=== PATIENT | male | born 1945 | race Caucasian/White ===

== ENCOUNTER 2019-09-04 10:35 | Inpatient (IN) | payer OTHER ==
[~2019-09-04] VITALS: Ht 177.8 cm; Wt 96.3 kg
[~2019-09-04 10:35] MED LIST: ADULT LOW DOSE81 MG PO; ATENOLOL 50MG T50 M1 PO; CIPROFLOXACIN500 M1 PO; CO Q-10100 MG PO; FISH OIL 1,0001 EAC1 PO; HYTRIN 1 MG CAP1 MG GT; HYTRIN 1 MG CAP1 MG PO; HYTRIN 2MG CAPSU2 M1 PO; INDOMETHACIN 5050 MG PO; LASIX 20 MG TAB20 MG PO; NIASPAN 500 MG500 M1 PO; ONE DAILY FOR1 EACH PO; POTASSIUM GLUC500 MG PO; RED YEAST RICE600 MG PO; TRICOR145 MG PO; ZETIA10 MG PO
[2019-09-04 10:44] VITALS: BP 199/87
[2019-09-04 11:18] LABS: ABSOLUTE EOSINOPHILS 0.1 thou/uL (0.0-0.7); ABSOLUTE LYMPHOCYTES 1.3 thou/uL (0.8-5.3); ABSOLUTE MONOCYTES 0.4 thou/uL (0.0-1.2); ABSOLUTE NEUTROPHILS 3.6 thou/uL (1.6-8.1); BASOPHILS 0.9 %; EOSINOPHILS 2.3 %; HEMATOCRIT 48.3 % (42.0-52.0); HEMOGLOBIN 16.7 gm/dL (14.0-18.0); LYMPHOCYTES 23.2 %; MCH 32.8 pg (26.0-34.0); MCHC 34.5 g/dL (28.0-37.0); MONOCYTES 7.5 %; MPV 9.8 fl. (7.2-11.1); NUCLEATED RBCS 0 /100WBC; PLATELET COUNT* 162 thou/uL (150-400); POLYS 66.1 %; RBC 5.08 mil/uL (4.50-6.00); RDW-CV 14.2 % (10.5-14.5); WBC 5.5 thou/uL (4.0-11.0)
[2019-09-04 11:23] LABS: CALCIUM 8.2 mg/dL (8.5-10.1); POTASSIUM 4.9 mmol/L (3.5-5.1)
[2019-09-04 11:34] LABS: ALBUMIN 3.6 g/dL (3.4-5.0); TOTAL BILIRUBIN 0.7 mg/dL (<0.1-1.0); TOTAL PROTEIN 7.3 g/dL (6.4-8.2)
--- NOTE | 2019-09-04 12:26 | NUR ---
HAMLET NOTIFIED UPON PT RETURN FROM CT. PT CONNECTED TO BP AND PULSE OX MONITOR HE WAS PRIOR TO CT
[2019-09-04 14:29] VITALS: BP 147/78
[2019-09-04 14:30] VITALS: BP 217/108
--- NOTE | 2019-09-04 15:34 | EKG ---
[place] [address] ELECTROCARDIOGRAM REPORT Name: OLIVIA CHAHAL Mell Room: [address] ADM IN M.R.#: [id number] Admission: 09/04/19 Attend Phys: Mary Ramírez Discharge: Date of : 43 Report #: [id number] THIS REPORT FOR: //name// [facility] ED Test Date: 2019-09-04 Test Time: 11:21:51 Pat Name: OLIVIA CHAHAL Department: Room: [facility] Gender: M Compliance And Control Analyst: : 1945 Requested By: Jonathan Garcia Order Number: [id number] MD: John Conner Measurements Intervals [place] Rate: 61 P: 27 [place]: 208 QRS: 8 QRSD: 95 T: 69 QT: 401 QTc: 404 Interpretive Statements Sinus rhythm Abnormal R-wave progression, early transition ST elevation, consider early repolarization Compared to ECG 10/23/2011 07:53:40 Sinus bradycardia no longer present ST (T wave) deviation still present Electronically Signed On 09-04-2019 15:33:59 HUNTER GUIDE by John Conner [email or web address] <ELECTRONICALLY SIGNED> By: John Conner MD, FAC 09/04/19 1533 1121 [id number] John Conner MD, [facility] /EPI
[2019-09-04 17:57] LABS: CHOLESTEROL 207 mg/dL (<200); HDL CHOLESTEROL 47 mg/dL (>40); LDL CHOLESTEROL 137 mg/dL (<100); SERUM ASSESSMENT Clear; TC:HDL 4.4 Ratio (Not establshd); TRIGLYCERIDE 118 mg/dL (<150); VLDL 24 mg/dL (<40)
[2019-09-04 19:50] VITALS: BP 168/89
[2019-09-04 23:44] VITALS: BP 123/50
[2019-09-05 04:00] VITALS: BP 150/72
--- NOTE | 2019-09-05 07:24 | NUR ---
VSS. SEE MAR. SEE CHARTING. HOURLY ROUNDING FOR SAFETY.
[2019-09-05 08:00] VITALS: BP 142/75
[2019-09-05 12:01] VITALS: BP 138/65
--- NOTE | 2019-09-05 12:56 | NUR ---
Automatic Blocker: Met with patient today. Began stroke education plan. patient open to learning. Does not indicate any new symptoms today.
--- NOTE | 2019-09-05 13:06 | NUR ---
Pt is A&O. Resides at home alone. Independent. No DME. No hx of HH or SNF. Supportive sister. Goal is home at sd. No needs anticipated.
[2019-09-05 16:23] VITALS: BP 134/57
--- NOTE | 2019-09-05 16:45 | 2DMMODE ---
[place] [address] 2 D/M-MODE ECHOCARDIOGRAM Name: TIRSOOLIVIA Monte Room: [address] IN [facility]#: [id number] Admission: 09/04/19 Attend Phys: Lnea Torrez Discharge: Date of : 43 Date of Service: 09/05/19 1644 Report #: [id number] THIS REPORT FOR: //name// APPROVED REPORT Study performed: 09/05/2019 14:10:01 EXAM: Comprehensive 2D, Doppler, and color-flow Echocardiogram Patient Location: In-Patient Room #: [facility] Status: routine BSA: 2.16 HR: 63 bpm BP: 142/75 mmHg Rhythm: NSR Other Information Study Quality: Good Indications CVA/TIA Echo Enhancing Agent Indication: Rule out Shunt Agent(s) / Amount(s) Used: Agitated Saline 10 cc 2D Dimensions IVSd: 18.18 (7-11mm) LVOT Diam: 20.50 (18-24mm) LVDd: 38.20 mm PWd: 16.35 (7-11mm) Ascending Ao: 31.88 (22-36mm) LVDs: 23.66 (25-40mm) Aortic Root: 35.52 mm Volumes Left Atrial Volume (Systole) LA ESV Index: 19.10 mL/m2 Aortic Valve AoV Peak Glenroy.: 1.15 m/s AO Peak Gr.: 5.25 mmHg LVOT Max P.51 mmHg AO Mean Gr.: 2.90 mmHg LVOT Mean P.15 mmHg LVOT Max V: 1.28 m/s AO V2 VTI: 23.72 cm LVOT Mean V: 0.82 m/s SAAD (VTI): 3.88 cm2 LVOT V1 VTI: 27.87 [place] [address] 2 D/M-MODE ECHOCARDIOGRAM Name: OLIVIA CHAHAL Room: [address] IN ..#: [id number] Admission: 09/04/19 Attend Phys: Lena Torrez Discharge: Date of : 43 Date of Service: 09/05/19 1644 Report #: [id number] Mitral Valve E/A Ratio: 1.03 MV Decel. Time: 221.70 ms MV E Max Glenroy.: 0.60 m/s MV PHT: 64.29 ms MVA (PHT): 3.42 cm2 TDI E/Lateral E': 5.45 E/Medial E': 7.50 Medial E' Glenroy.: 0.08 m/s Lateral E' Glenroy.: 0.11 m/s Pulmonary Valve PV Peak Glenroy.: 0.89 m/s PV Peak Gr.: 3.14 mmHg Left Ventricle The left ventricle is normal size. There is normal LV segmental wall motion. Moderate concentric left ventricular hypertrophy. Left ventricular systolic function is normal. LVEF is 60-65%. Transmitral Doppler flow pattern suggests impaired LV relaxation. Right Ventricle The right ventricle is normal size. The right ventricular systolic function is normal. Atria The left atrium size is normal. The interatrial septum is intact with no evidence for an atrial septal defect. The right atrium size is normal. Aortic Valve Mild aortic valve sclerosis. No aortic regurgitation is present. There is no aortic valvular stenosis. Mitral Valve The mitral valve is normal in structure. There is no mitral valve regurgitation noted. No evidence of mitral valve stenosis. Tricuspid Valve The tricuspid valve is normal in structure. Unable to assess PA pressure. Trace tricuspid regurgitation. Pulmonic Valve The pulmonary valve is normal in structure. There is no pulmon[place] [address] 2 D/M-MODE ECHOCARDIOGRAM Name: OLIVIA CHAHAL Room: [address] IN [facility]#: [id number] Admission: 09/04/19 Attend Phys: Lena Torrez Discharge: Date of : 43 Date of Service: 09/05/19 1644 Report #: [id number] Great Vessels The aortic root is normal in size. IVC is normal in size and collapses >50% with inspiration. Pericardium There is no pericardial effusion. <Conclusion> The left ventricle is normal size. Moderate concentric left ventricular hypertrophy. Left ventricular systolic function is normal. LVEF is 60-65%. Transmitral Doppler flow pattern suggests impaired LV relaxation. The interatrial septum is intact with no evidence for an atrial septal defect. Trace tricuspid regurgitation. Mild aortic valve sclerosis. IVC is normal in size and collapses >50% with inspiration. <ELECTRONICALLY SIGNED> By: Crow Mack MD, FACC 09/05/19 1644 164 164 Crow Mack MD, FACC /INF
--- NOTE | 2019-09-05 17:48 | NUR ---
VSS, A&OX4, SB TO SR ON TELE, UP AD FRANSICO, WALKING IN THE ANDERS, HOURLY ROUNDING PERFORMED, POSSESSIONS AND CALL LIGHT WITHIN REACH.
[2019-09-05 19:40] VITALS: BP 149/74
[2019-09-06] VITALS: BP 144/79
[2019-09-06 02:10] LABS: GLYCOHEMOGLOBIN (HGB A1C) 6.1 % (4.8-5.6)
[2019-09-06 04:00] VITALS: BP 153/72
[2019-09-06 08:00] VITALS: BP 120/69
[2019-09-06 11:46] VITALS: BP 120/69
[2019-09-06] MEDS ORDERED: LIPITOR40 MG PO (11:59)
[2019-09-06] MEDS ORDERED: FOLIC ACID1 MG PO (12:00)
[2019-09-06] MEDS ORDERED: PLAVIX 75 MG TA75 MG PO (12:00)
[2019-09-06] MEDS ORDERED: VITAMIN B-121000 MC2 SUBQ (12:01)
--- NOTE | 2019-09-06 13:22 | NUR ---
I have reviewed the documentation by ROB RODRIGUEZ from 09/06/19 to 09/06/19 and I concur with it. WALDEMAR ADHIKARI
--- NOTE | 2019-09-11 12:03 | CON ---
[address] [address] CONSULTATION Name: TIRSOOLIVIA Monte Room: [address] IN M.R.#: [id number] Admission: 09/04/19 Attend Phys: Mary Ramírez Discharge: 09/06/19 Date of : 43 Report #: [id number] THIS REPORT FOR: //name// CC: Kelli Torrez DATE OF SERVICE: 09/05/2019 HISTORY OF PRESENT ILLNESS: This is a 73-year-old male patient who was evaluated by me for an episode he had on Wednesday. It looks like that the episode consisted of numbness on the left side as well as some weakness. It came spontaneously and resolved spontaneously in a few minutes. It was not associated with any headache. It looks like the weakness was severe on the left side because he had to sit down. He indicated that he had a similar episode about 4 years ago, but never sought any medical attention. No workup was done at that time. REVIEW OF SYSTEMS: Indicates that the patient is hypertensive and he takes antihypertensive for that. He has taken a baby aspirin for a long time. He does have some cardiac issues in the past. He has a history of high cholesterol. His intestine was removed some time ago. He does give a history of heart murmur in the past. He does have some inguinal hernia. This was his relevant 14-point review of systems. He does not complain of any specific eye, ENT, cardiac, respiratory, GI, , musculoskeletal, constitutional, dermatological, hematological, psychiatric, throat, or allergic symptom associated with present symptomatology. PAST MEDICAL HISTORY: Positive for similar episode about 4 years ago, but no workup was done. FAMILY HISTORY: Positive for stroke. SOCIAL HISTORY: He smoked a long time ago, but does not do it now. PHYSICAL EXAMINATION: NEUROLOGIC: The patient's examination indicates he is alert. He is responsive. He can follow simple and complex command. His speech, concentration, fund of knowledge, and memory is at his baseline. His cranial nerve examination 2 through 12 mostly looks unremarkable. I tried to look for a left hemianopsia, but I did not confirm that he may have some visual deficit, but they are not as prominent as expected from his occipital lobe stroke. His strength, sensation, reflexes, and tone is symmetrical. There is no cerebellar sign. There is no papilledema. There is no carotid bruit. GENERAL: He is reasonably well-developed individual. EXTREMITIES: His pulses are palpable. He does not have any significant edema, cyanosis, [place] [address] CONSULTATION Name: OLIVIA CHAHAL Room: [address]#: [id number] Admission: 09/04/19 Attend Phys: Mary Ramírez Discharge: 09/06/19 Date of : 43 Report #: [id number] CARDIAC: His cardiac examination does not show any atrial fibrillation. RESPIRATORY: He has no respiratory difficulty or rhonchi. VITAL SIGNS: Blood pressure is 142/75, respirations 16, pulse is 55, and temperature is 98.1. LABORATORY DATA: His white count is 5.5 and his cholesterol is 207 with LDL of 137. His MRIs and CT were reviewed and they are summarized as above. IMPRESSION: 1. 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 2. Dyslipidemia. 3. Stroke occurred in spite of the fact that this patient was on aspirin, so I think we will try a combination of aspirin and Plavix for at least 30 days and then decide which one to continue or to continue both. RECOMMENDATIONS: 1. We will suggest high intensity statin therapy. 2. Combination of aspirin and Plavix for the time being. 3. Quite a significant percentage of posterior cerebral strokes stand out to be cardioembolic. We will await an echo and this patient will need a 30-day event monitor as an outpatient. All of it was discussed with the patient and the patient wants to follow this plan. <ELECTRONICALLY SIGNED> By: Myron Wills MD 09/11/19 1203 0935 [id number] Wills MD /nt
== END 2019-09-06 13:21 | disposition home or self-care (01) | DRG 65 ==
LOC: M.ERS 10:35 → M.TBA-ER 13:20 → M.2W 13:20
PROVIDERS: Emergency Medicine Emergency Medical Services; ADMIT Internal Medicine
DX: I63.521 Cerebral infarction due to unspecified occlusion or stenosis of right anterior cerebral artery (principal); I16.9 Hypertensive crisis, unspecified; I35.8 Other nonrheumatic aortic valve disorders; K08.109 Complete loss of teeth, unspecified cause, unspecified class; I10 Essential (primary) hypertension; E78.00 Pure hypercholesterolemia, unspecified; E78.5 Hyperlipidemia, unspecified; F17.200 Nicotine dependence, unspecified, uncomplicated; I25.10 Atherosclerotic heart disease of native coronary artery without angina pectoris; R73.09 Other abnormal glucose; I07.1 Rheumatic tricuspid insufficiency; Z90.89 Acquired absence of other organs; Z79.82 Long term (current) use of aspirin; Z79.899 Other long term (current) drug therapy; Z88.5 Allergy status to narcotic agent; Z82.3 Family history of stroke

== ENCOUNTER 2019-09-07 14:32 | Inpatient (IN) | payer OTHER ==
[~2019-09-07] VITALS: Ht 180.3 cm; Wt 94.9 kg
[~2019-09-07 14:32] MED LIST changes: +FOLIC ACID1 MG PO; +LIPITOR40 MG PO; +PLAVIX 75 MG TA75 MG PO; +VITAMIN B-121000 MC2 SUBQ
[2019-09-07 15:03] LABS: ABSOLUTE LYMPHOCYTES 0.9 thou/uL (0.8-5.3); ABSOLUTE MONOCYTES 0.4 thou/uL (0.0-1.2); ABSOLUTE NEUTROPHILS 5.4 thou/uL (1.6-8.1); BASOPHILS 0.7 %; EOSINOPHILS 0.5 %; HEMATOCRIT 49.7 % (42.0-52.0); LYMPHOCYTES 12.7 %; MCH 32.5 pg (26.0-34.0); MCHC 34.3 g/dL (28.0-37.0); MCV 94.8 fL (80.0-100.0); MONOCYTES 6.5 %; MPV 9.4 fl. (7.2-11.1); NUCLEATED RBCS 0 /100WBC; PLATELET COUNT* 162 thou/uL (150-400); POLYS 79.6 %; RBC 5.24 mil/uL (4.50-6.00); RDW-CV 14.3 % (10.5-14.5); WBC 6.8 thou/uL (4.0-11.0)
[2019-09-07 15:11] LABS: PROTIME 10.3 Seconds (9.20-11.50)
[2019-09-07 15:12] LABS: CALCIUM 8.7 mg/dL (8.5-10.1); CREATININE 1.2 mg/dL (0.6-1.3); POTASSIUM 4.8 mmol/L (3.5-5.1)
[2019-09-07 15:16] LABS: ALBUMIN 3.9 g/dL (3.4-5.0); TOTAL BILIRUBIN 0.9 mg/dL (<0.1-1.0); TOTAL PROTEIN 7.6 g/dL (6.4-8.2)
[2019-09-07 18:45] VITALS: BP 165/129
[2019-09-07 20:00] VITALS: BP 166/72
[2019-09-07 23:45] VITALS: BP 157/71
[2019-09-08] VITALS (8 sets, daily range): BP systolic 142–194; BP diastolic 63–82
[2019-09-08 06:19] LABS: ALKALINE PHOSPHATASE 45 U/L (46-116); ANION GAP 6 mmol/L (7-16); BUN 8 mg/dL (7-18); CHLORIDE 109 mmol/L (98-107); CO2 29 mmol/L (21-32); CREATININE 0.9 mg/dL (0.6-1.3); GLUCOSE 95 mg/dL (70-99); SGOT 20 U/L (15-37); SODIUM 144 mmol/L (136-145)
[2019-09-08 06:20] LABS: ALBUMIN 3.1 g/dL (3.4-5.0); CHOLESTEROL 133 mg/dL (<200); HDL CHOLESTEROL 35 mg/dL (>40); LDL CHOLESTEROL 73 mg/dL (<100); SERUM ASSESSMENT CLEAR; TC:HDL 3.8 Ratio (Not establshd); TOTAL PROTEIN 6.2 g/dL (6.4-8.2); TRIGLYCERIDE 128 mg/dL (<150); VLDL 26 mg/dL (<40)
[2019-09-08 06:30] LABS: CALCIUM 7.6 mg/dL (8.5-10.1); SGPT 20 U/L (30-65)
--- NOTE | 2019-09-08 10:25 | EKG ---
[place] [address] ELECTROCARDIOGRAM REPORT Name: OLIVIA CHAHAL Room: [address] ADM IN M.R.#: [id number] Admission: 09/07/19 Attend Phys: Ishan Manriquez Discharge: Date of : 43 Report #: [id number] THIS REPORT FOR: //name// [facility] ED Test Date: 2019-09-07 Test Time: 14:54:41 Pat Name: OLIVIA CHAHAL Department: Room: [facility] Gender: M Databases Computer Consultant: : 1945 Requested By: Jonathan Garcia Order Number: [id number] MD: John Conner Measurements Intervals [place] Rate: 71 P: 42 [place]: 203 QRS: -6 QRSD: 90 T: 64 QT: 383 QTc: 417 Interpretive Statements Sinus rhythm Abnormal R-wave progression, early transition Minimal ST elevation, anterior leads suggesting early repolarization Compared to ECG 09/04/2019 11:21:51 No significant changes Electronically Signed On 09-08-2019 10:24:59 CONCRETE TECHNICIAN by John Conner [email or web address] <ELECTRONICALLY SIGNED> By: John Conner MD, FACC 09/08/19 1024 1454 1454 John Conner MD, [facility] /EPI
[2019-09-09] VITALS (7 sets, daily range): BP systolic 117–210; BP diastolic 51–95
[2019-09-09 02:07] LABS: GLYCOHEMOGLOBIN (HGB A1C) 5.9 % (4.8-5.6)
[2019-09-10 04:10] VITALS: BP 170/92
[2019-09-10 11:10] VITALS: BP 164/79
[2019-09-10 16:37] VITALS: BP 174/77
[2019-09-10 20:00] VITALS: BP 182/69
[2019-09-11] VITALS: BP 161/90
[2019-09-11 04:00] VITALS: BP 175/75
[2019-09-11 08:07] VITALS: BP 177/94
[2019-09-11 08:47] LABS: HEMATOCRIT 43.3 % (42.0-52.0); HEMOGLOBIN 14.9 gm/dL (14.0-18.0); MCH 32.3 pg (26.0-34.0); MCHC 34.5 g/dL (28.0-37.0); MCV 93.7 fL (80.0-100.0); MPV 8.8 fl. (7.2-11.1); RBC 4.62 mil/uL (4.50-6.00); RDW-CV 13.6 % (10.5-14.5); WBC 5.3 thou/uL (4.0-11.0)
[2019-09-11 08:55] LABS: CALCIUM 7.9 mg/dL (8.5-10.1); CREATININE 0.8 mg/dL (0.6-1.3); POTASSIUM 3.7 mmol/L (3.5-5.1)
[2019-09-11 11:21] VITALS: BP 177/94
[2019-09-11 12:00] VITALS: BP 151/78
--- NOTE | 2019-09-11 12:03 | CON ---
[address] [address] CONSULTATION Name: OLIVIA CHAHAL Room: [address] IN M.R.#: [id number] Admission: 09/07/19 Attend Phys: Ishan Manriquez Discharge: Date of : 43 Report #: [id number] THIS REPORT FOR: //name// CC: Ishan Tolbert DATE OF SERVICE: 09/07/2019 HISTORY OF PRESENT ILLNESS: This is a 73-year-old male patient who is known to me from the last admission. He was actually just here for a CVA because of the posterior cerebral artery stenosis or occlusion. His symptoms have much improved and he went home. The plan was to keep him on dual antiplatelet therapy, but unfortunately he never filled up his prescriptions. He did not fill up his prescription for statin either because he had a severe dyslipidemia. It would appear that his symptoms became worse. It is not clear when his symptoms became worse, either. He does not think he is much different, but he is definitely worse than before. The patient's sister has gone to see him and she asked him to call when he is out of the restroom, but he never called and she became concerned and asked the firepersons to go and check on him and he was on the floor, unable to get up, so I think he got worse sometime in the morning. He was brought to Emergency Room, and I examined him as a stroke protocol and his blood pressure is staying about 160 systolic, but he is definitely worse then he was the last time I saw him. REVIEW OF SYSTEMS: He does have a history of hyperlipidemia and a recent stroke just a few days ago. He had a similar episode 4 years ago, but he never sought any medical attention. PAST MEDICAL HISTORY: Positive for what looks like TIA and a stroke few days ago. FAMILY HISTORY: Positive for stroke. SOCIAL HISTORY: He used to smoke, but does not do it now. PHYSICAL EXAMINATION: Today indicates he is alert, he is responsive, he can still follow commands, but I think he has a neglect on the left side. He moves his left leg and he can move somewhat his left arm also, but the movement is small. He does not cooperate very well with the sensory examination. He does appear to have a facial palsy also on the left side. Cardiac examinations appear noncontributory. No respiratory difficulty was noticed. Blood pressure is running in acceptable range. The patient was discussed with Emergency Room physician multiple times, and I discussed with the hospitalist, who is going to admit the patient. Following thing was discussed. IMPRESSION: [place] [address] CONSULTATION Name: OLIVIA CHAHAL Room: [address] IN ..#: [id number] Admission: 09/07/19 Attend Phys: Ishan Manriquez Discharge: Date of : 43 Report #: [id number] 1. This patient is not a TPA candidate because he just had a stroke within 3 months and these aggravation of the stroke symptoms occurred way outside the window of 4-1/2 hour. 2. He is not an intervention candidate because no thrombus has been demonstrated in any large vessel. 3. He appeared to have become worse that appeared to be natural course of the stroke than anything else. I will suggest continuing dual platelet therapy with aspirin and Plavix. Problem is that he cannot swallow. If he cannot swallow, the Plavix has to be given by BAN or Joanna. Supervisor Chlorine Liquefaction is going to address that question. I talked to the sister that strokes are unpredictable and they can continue to become worse in the next few days and that is what I believe it has happened. There is nothing which we can do to alter the course of those strokes on CT scan. The strokes are more well defined and bigger, but that is because of natural course of the stroke than anything else. Dr. Romano will follow up with you from tomorrow, but I think this patient will need a prolonged rehabilitation, and we will consult rehab and put him on DVT prophylaxis. Time spent about 50 minutes and majority counseling and coordinating. <ELECTRONICALLY SIGNED> By: Myron Wills MD 09/11/19 120 22 Pstephanie Wills MD /nt
[2019-09-11 20:00] VITALS: BP 144/86
[2019-09-12 00:34] VITALS: BP 152/72
[2019-09-12 04:45] VITALS: BP 182/77
[2019-09-12 07:40] VITALS: BP 158/82
[2019-09-12 12:15] VITALS: BP 173/84
[2019-09-12 16:00] VITALS: BP 189/91
[2019-09-12] MEDS ORDERED: SODIUM CHLORIDE IVPB (16:40)
== END 2019-09-12 19:46 | DRG 65 ==
LOC: M.ERS 14:32 → M.TBA-ER 17:05 → M.2W 17:05 → M.3W 09-12 05:35
PROVIDERS: Emergency Medicine Emergency Medical Services; Internal Medicine; ADMIT Family Medicine
DX: I63.9 Cerebral infarction, unspecified (principal); G81.94 Hemiplegia, unspecified affecting left nondominant side; I10 Essential (primary) hypertension; I16.0 Hypertensive urgency; E78.5 Hyperlipidemia, unspecified; I25.10 Atherosclerotic heart disease of native coronary artery without angina pectoris; R73.03 Prediabetes; I35.8 Other nonrheumatic aortic valve disorders; Z66 Do not resuscitate; K08.40 Partial loss of teeth, unspecified cause; E78.00 Pure hypercholesterolemia, unspecified; Z79.82 Long term (current) use of aspirin; Z90.89 Acquired absence of other organs; Z79.899 Other long term (current) drug therapy; Z72.0 Tobacco use; Z88.5 Allergy status to narcotic agent; Z82.3 Family history of stroke

== ENCOUNTER 2019-09-12 17:52 | Inpatient (IN) | payer OTHER ==
[~2019-09-12] VITALS: Ht 177.8 cm; Wt 89.8 kg
[~2019-09-12 17:52] MED LIST changes: +SODIUM CHLORIDE IVPB
[2019-09-12 20:03] VITALS: BP 190/81
[2019-09-12 23:00] VITALS: BP 142/80
[2019-09-13 02:00] VITALS: BP 163/75
--- NOTE | 2019-09-13 02:43 | NUR ---
ADMITTED A 74 YEAR OLD MALE W/ RIGHT CVA & LEFT HEMIPARESIS @ 1936- -.RIGHT HAND DOMINANT.HOB UP.BED ALARM PUT ON @ 1939.HS MEDS GIVEN W/ VANILLA PUDDING,FOLLOWED W/ SIPS H20 ON GLASS.NO STRAW.NO BLOOD RETURN FROM SALINE LOCK RIGHT HAND @ 2300 BUT FLUSHED GOOD.BP 2300-142/80.NS 500 ML BOLUS IV GIVEN @ 2346.BP @ 0200-163/75.ON HOURLY ROUNDS.BEAUTICIAN APPRENTICE DOING ODD HOUR ROUNDS.
[2019-09-13 05:00] VITALS: BP 137/56
[2019-09-13 06:34] LABS: HEMATOCRIT 42.4 % (42.0-52.0); HEMOGLOBIN 14.7 gm/dL (14.0-18.0); MCH 32.7 pg (26.0-34.0); MCHC 34.7 g/dL (28.0-37.0); MCV 94.2 fL (80.0-100.0); MPV 10.3 fl. (7.2-11.1); RBC 4.5 mil/uL (4.50-6.00); RDW-CV 13.8 % (10.5-14.5); WBC 5.3 thou/uL (4.0-11.0)
--- NOTE | 2019-09-13 06:37 | NUR ---
SLEEPING SINCE 2044.CALLS TO USE URINAL X3.NURSE PUTS,HOLDS,REMOVES & EMPTIES URINAL.ALREADY INC URINE X2 WHEN CALLED 2X TO USE URINAL.TOOK ALL VANILLA PUDDING W/ HS MEDS.AT 0500-BP-137/56.NS 500 ML STARTED 2ND TIME @ 0514 PER SALINE LOCK RIGHT HAND.
[2019-09-13 06:42] LABS: CALCIUM 7.9 mg/dL (8.5-10.1); CREATININE 0.8 mg/dL (0.6-1.3); POTASSIUM 3.4 mmol/L (3.5-5.1)
[2019-09-13 07:00] VITALS: BP 168/74
--- NOTE | 2019-09-13 07:23 | NUR ---
BP CHECKED @ 0700-168/74.IV STILL INFUSING.
--- NOTE | 2019-09-13 10:08 | NUR ---
Nutrition: Pt admitted to rehab with Rt CVA. H/o HTN, stroke, UTI. Antiplatelet RX. Chopped diet, eating 100%. Albumin 3.1. Wt 209#. No nutrition interventions needed at this time. RD available. Will follow weekly. Mild risk.
[2019-09-13 12:00] VITALS: BP 159/59
--- NOTE | 2019-09-13 13:15 | NUR ---
MOOK and Dr Barakat met with pt to review team conference summary and plan for pt to review team conference summary and plan for pt to remain on rehab unit with team to reassess pt length of stay during team conference next Wednesday. Pt okay with plan. SW to continue to follow.
--- NOTE | 2019-09-13 17:23 | NUR ---
AM ASSESSMENT AND VITAL SIGNS COMPLETED DOCUMENTED. PT IS PLEASANT AND COOPERATIVE. PT'S LEFT SIDE IS WEAK AND HE IS MAX ASSIST OF TWO WITH TRANSFERS. SBP HAS BEEN MAINTAINED BETWEEN 160 AND 190. FALL PRECAUTIONS AND HOURLY ROUNDING CONTINUE.
[2019-09-13 20:27] VITALS: BP 180/78
--- NOTE | 2019-09-13 20:50 | NUR ---
RESTING QUIETLY IN BED WATCHING TV. DENIES DISCOMFORT. LEFT ARM ELEVATED ON A PILLOW. TOOK MEDICATIONS WHOLE WITH WATER. CALL LIGHT WITHIN REACH.
--- NOTE | 2019-09-14 04:56 | NUR ---
RESTED ON/OFF. ASSISTED WITH URINAL X 2. HOURLY ROUNDING IN PROGRESS.
--- NOTE | 2019-09-14 10:35 | NUR ---
SW met with pt to complete initial assessment, as SW had met pt yesterday with Dr Barakat to review team conference. Pt was alert, oriented, talkative. Pt lives at home alone and has a goal of dc home independently. Possibility for pt to dc home with sister support if needed. SW to continue to follow to assist with safe dc planning.
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
[2019-09-14 20:24] VITALS: BP 147/53
--- NOTE | 2019-09-14 22:58 | NUR ---
ON PERMISSIVE HTN PROTOCOL. BLOOD PRESSURE WAS 149/60, PULSE 54. ALSO HAS ORDERS FOR ATENOLOL 75 MG AND TERAZOSIN 2 MG AT HS. NO PARAMETERS ON THE ATENOLOL AND TERAZOSIN ORDERS. CALL PLACED TO DR. GOEL PER LINDA AT 2048. LINDA RESENT IT AUTOMATICALLY AT 2108. NO CALL RETURNED. THIS NURSE CALLED EXCHANGE AT [phone] AND ASKED FOR ANOTHER PAGE. IN THE MEAN TIME, DR. PIMENTEL CALLED THIS UNIT AT 2225 AND GAVE ORDERS TO HOLD THE ATENOLOL AND TERAZOSIN TONIGHT AND ADDED PARAMETERS TO HOLD IF SPB LESS THAN 160. SHE LATER EDITED THE [facility]AR FOR ADDITIONAL MEDICINES. DURING THE PHONE CALL SHE ORDERED THE FLUID BOLUS TO BE GIVEN AND CLARIFIED ITS PARAMETER OF GIVING IF SBP < 160. WHILE THIS NURSE WAS GETTING THE FLUID BOLUS PREPARED, DR. GOEL RETURNED CALL AT 2240 AND WAS INFORMED BY THIS NURSE OF THE CHANGES DR. PIMENTEL IMPLEMENTED.
--- NOTE | 2019-09-14 23:12 | NUR ---
[place] [address]. PATIENT RESTING IN BED SLEEPING AT SHIFT CHANGE. VOIDS PER URINAL WITH HELP. TURNS SELF. SALINE LOCK TO RT HAND, IV FLUID BOLUS INFUSING PER ORDER. SEE OTHER NOTE ABOUT BLOOD PRESSURES, PHYSICIAN CONTACTS AND CLARIFICATION OF ORDERS. VISUAL CUTS NOTED WHEN GIVING PATIENT PILLS AND FLUIDS. NO C/O PAIN. HOURLY ROUNDS CONTINUE. BED ALARM ON. CALL LITE IN REACH.
[2019-09-15 01:08] VITALS: BP 182/63
[2019-09-15 04:34] LABS: HEMATOCRIT 42.9 % (42.0-52.0); HEMOGLOBIN 14.9 gm/dL (14.0-18.0); MCHC 34.7 g/dL (28.0-37.0); MPV 9.4 fl. (7.2-11.1); RBC 4.51 mil/uL (4.50-6.00); RDW-CV 13.2 % (10.5-14.5); WBC 5.6 thou/uL (4.0-11.0)
[2019-09-15 04:52] LABS: CALCIUM 8.2 mg/dL (8.5-10.1); CREATININE 0.9 mg/dL (0.6-1.3); POTASSIUM 3.7 mmol/L (3.5-5.1)
--- NOTE | 2019-09-15 06:07 | NUR ---
SLEPT MUCH OF THE NIGHT. VOIDED PER URINAL ONCE, INCONTINENT OF URINE IN BRIEF LATER. SKIN CARE GIVEN, MOVES IN BED PER SELF. PULLED OUT IV JUST AFTER IV BOLUS COMPLETED. BLOOD PRESSURE AFTER BOLUS 182/63 PULSE 66. HOURLY ROUNDS CONTINUE. BED ALARM ON. CALL LITE IN REACH.
[2019-09-15 08:22] VITALS: BP 178/64
--- NOTE | 2019-09-15 15:45 | NUR ---
AM ASSESSMENT AND VITAL SIGNS COMPLETED DOCUMENTED. PT'S AM BLOOD PRESSURE WAS WITHIN THE DESIRED PARAMETERS. PT CONTINUES TO HAVE LEFT SIDED NEGLECT AND REQUIRES ASSISTANCE WITH EATING AND USING THE URINAL. PT TAKES HIS MEDICATION WHOLE, ONE AT A TIME IN PUDDING. PT IS WORKING WITH PT, OT AND ST. FALL PRECAUTIONS AND HOURLY ROUNDING CONTINUE.
[2019-09-15 20:32] VITALS: BP 167/65
--- NOTE | 2019-09-16 02:24 | NUR ---
ASSUMED CARE @ 1924-09/15-WED.CHAIR ALARM SOUNDED @ THIS TIME.FOUND WANTING TO STAND UP.PATIENT ON ROCKING CHAIR.ASSISTED TO BED W/ 2 PERSON W/ GB & WALKER. HOB UP.BED ALARM PUT ON @ 1929.LUE & LLE-STILL WEAK.HS MEDS GIVEN WHOLE ONE @ A TIME W/ VANILLA PUDDING @ 2039.RN FED REST OF PUDDING.LUE UP ON A PILLOW. ON HOURLY ROUNDS.CONTROL TOWER OPERATOR DOING ODD HOUR ROUNDS.TURNS SELF @ NIGHT.
--- NOTE | 2019-09-16 05:52 | NUR ---
SLEEPING SINCE 2200 & SLEPT GOOD ALL NIGHT.CALLS TO ASSIST W/URINAL X3.TOOK ALL VANILLA PUDDING WE/ HS MEDS HS SNACK.
[2019-09-16 08:00] VITALS: BP 140/72
[2019-09-16 13:00] VITALS: BP 143/59
--- NOTE | 2019-09-16 17:42 | NUR ---
ALERT AND OREINTED X4 BUT FORGETFUL AT TIMES. UP WITH 1-2 ASSIST, GAIT BELT AND WALKER FOR PIVOT TRANSFERS. HAS STRONG ALARM INVESTIGATOR AND GOOD STRENGTH IN LEFT HAND AND LEFT LEG BUT HAS POOR COORDINATION WITH MOVEMENTS. DR NOTIFIED OF AM BLOOD PRESSURE AND NO IV ACCESS. DR STATED SHE WANTED IV STARTED AND IV FLUID BOLUS GIVEN. NEW IV STARTED WITHOUT DIFFICULTY AND FLUID BOLUS INFUSED WITHOUT DIFFICULTY. MOM GIVEN FOR CONSTIPATION WITHUT RESULTS AT THIS TIME. TYLENOL GIVEN FOR HEADACH AND SEEMS HELPFUL. USES CALL LIGHT WITHIN REACH. FALL PRECAUTIONS IN PLACE, BED AND CHAIR ALARMS USED.
[2019-09-16 18:30] VITALS: BP 176/71
[2019-09-16 19:30] VITALS: BP 158/76
[2019-09-16 22:30] VITALS: BP 175/95
--- NOTE | 2019-09-17 01:22 | NUR ---
ASSUMED CARE @ -SAT.SITS IN W/C @ BEDSIDE VISITING W/ LADY & MALE FRIENDS.CHAIR ALARM ALREADY ON @ 1909.HS MEDS GIVEN WHOLE ONE @ TIME W/ APPLE SAUCE THIS TIME FOLLOWED W/ TOMATO JUICE.HS DOSES HYTRIN & ATENOLOL HELD.BP-158/76.2 PERSON TO TRANSFER.WEAK-LUE & LEFT LE.HOB UP & LUE UP ON A PILLOW @ 2049.URINAL W/IN REACH.BED ALARM PUT ON @ 2049.BP RE-CHECKED @ 2230- 175/95.SALINE LOCK HAS GOOD BLOOD RETURN @ -WEDNESDAY & FLUSHES GOOD. ON HOURLY ROUNDS.ANTHROPOLOGY FACULTY MEMBER DOING ODD HOUR ROUNDS.
--- NOTE | 2019-09-17 05:25 | NUR ---
SLEEPING SINCE 2144 & SLEPT GOOD ALL NIGHT.TOOK ALL APPLE SAUCE W/ HS MEDS & ALL TOMATO JUICE HS SNACKS.CALLED @ 0340.ALREADY INC.URINE X1.BOTTOM BED SHEET,GOWN & PADS CHANGED.USED URINAL W/ ASSIST X1.LAURA CARE DONE @ 0340.
[2019-09-17 08:03] VITALS: BP 178/117
[2019-09-17 08:30] VITALS: BP 164/73
--- NOTE | 2019-09-17 17:52 | NUR ---
ALERT AND ORIENTED WITH SOME FORGETFULNESS.UP WITH 1 ASSIST, GAIT BELT AND WALKER. NO C/O PAIN. HAS LEFT SIDED WEAKNESS AND DECREASE COORDINATION. CALL LIGHT WITHIN REACH. FALL PRECAUTIONS IN PLACE, BED AND CHAIR ALARM USED.
[2019-09-17 18:00] VITALS: BP 176/95
[2019-09-17 19:30] VITALS: BP 151/63
[2019-09-17 21:20] VITALS: BP 169/70
--- NOTE | 2019-09-18 00:54 | NUR ---
ASSUMED CARE @ 1909-09/17-SUN.SITS IN W/C IN WATCHING BALL GAME IN TV.CHAIR ALARM ALREADY ON @ 1909.TRANSFER W/ 2 PERSONS.WEAK-LUE & LEFT LE.HOB UP & LUE UP ON A PILLOW.BED ALARM PUT ON @ 1934.HS MED GIVEN W/ VANILLA pudding. HS BP MEDS X2 HELD.BP-151/63.DUL SUP GIVEN RECTALLY @ 2029.LAST BM-09/12.2 OR 3 SMALL STOOLS FELT WHEN SUP INSERTED.LATER- HAD MOD BM @ 2210 PER BSC.LAURA CARE DONE X2.SALINE LOCK HAS GOOD BLOOD RETURN & FLUSHES GOOD @ 9-09/18-WEDNESDAY. BP RE-CHECKED @ 2119-.ON HOURLY ROUNDS.CREW SUPERVISOR DOING ODD HOUR ROUNDS.
[2019-09-18 02:08] VITALS: BP 167/74
--- NOTE | 2019-09-18 05:25 | NUR ---
SLEPT LATE ABOUT 0200.WEARS PULL UPS.USED BSC X2.VOIDED X1 PER BSC.HAD BM X1 PER BSC.BP RE-CHECKED @ 0205-.TOOK ONLY 50% VANILLA PUDDING W/ HS MED.
[2019-09-18 08:10] VITALS: BP 166/69
[2019-09-18 16:00] VITALS: BP 131/98
--- NOTE | 2019-09-18 17:56 | NUR ---
SW spoke with pt sister Friday 09/15 and today about pt dc planning and pt sister informed that she is unable to accept pt home as pt sister lives in section 8 hud housing. Plus, pt sister said that even if her apts allowed her to have pt stay with her, pt sister is to have cataract surgery and would not be able to provide any physical or other needed care. Pt sister hopeful for [facility] to provide some assistance eventually but is also hopeful that pt could possibly dc to [facility] if needed at dc. SW to continue to follow to assist with safe dc planning.
--- NOTE | 2019-09-18 18:34 | NUR ---
ALERT AND ORIENTED WITH PERIODS OF FORGETFULNESS. UP WITH 1 ASSIST, GAIT BELT AND WALKER. HAS LEFT SIDED WEAKNESS FROM CVA. DENIES NEED FOR PAIN MEDICATIONS. CONTINENT OF BOWEL AND BLADDER. B/P THIS AFTERNOON 131/98 AND BOLUS IVF INFUSING AT THIS TIME WITHOUT DIFFICULTY. USES CALL LIGHT WITHIN REACH. FALL PRECAUTIONS IN PLACE.
[2019-09-18 19:10] VITALS: BP 181/81
--- NOTE | 2019-09-18 21:34 | NUR ---
ASSUMED CARE AT 1930. PATIENT RESTING IN BED. IV FLUID BOLUS COMPLETED AT 1930. PATIENT TURNS SELF. VOIDS PER URINAL. TAKES PILLS WHOLE WITH PUDDING. SALINE LOCK/IV RT AC FLUSHES WELL. NO C/O PAIN. HOURLY ROUNDS CONTINUE. BED ALARM ON. CALL LITE IN REACH.
[2019-09-19 02:00] VITALS: BP 152/77
[2019-09-19 05:21] LABS: HEMATOCRIT 45.7 % (42.0-52.0); HEMOGLOBIN 15.9 gm/dL (14.0-18.0); MCH 33.1 pg (26.0-34.0); MCHC 34.7 g/dL (28.0-37.0); MCV 95.3 fL (80.0-100.0); MPV 9.9 fl. (7.2-11.1); RBC 4.8 mil/uL (4.50-6.00); RDW-CV 13.3 % (10.5-14.5); WBC 5.9 thou/uL (4.0-11.0)
--- NOTE | 2019-09-19 05:31 | NUR ---
SLEPT MUCH OF THE NIGHT. IV FLUID BOLUS GIVEN AT 0200. IV TO RT AC PATENT, PATIENT NEEDS TO BE REMINDED TO KEEP ARM STRAIGHT DURING INFUSION. TURNS SELF. VOIDED PER URINAL. NO C/O PAIN. HOURLY ROUNDS CONTINUE. BED ALARM ON. CALL LITE IN REACH.
[2019-09-19 06:11] LABS: ALBUMIN 3.5 g/dL (3.4-5.0); CALCIUM 8.5 mg/dL (8.5-10.1); CREATININE 0.8 mg/dL (0.6-1.3); MAGNESIUM 1.7 mg/dL (1.8-2.4); POTASSIUM 3.6 mmol/L (3.5-5.1); TOTAL BILIRUBIN 1.2 mg/dL (<0.1-1.0); TOTAL PROTEIN 7.2 g/dL (6.4-8.2)
[2019-09-19 08:30] VITALS: BP 154/63
--- NOTE | 2019-09-19 16:04 | NUR ---
pt has participated with therapies and calls for assist as needs.pt transferrs with gaitbelt,walker and queing.pt has been continent of bladder.pt alert to self but forgetfull and has rt sided neglect. bed and chair alarms in use.
[2019-09-19 16:10] VITALS: BP 144/66
[2019-09-19 19:30] VITALS: BP 170/80
--- NOTE | 2019-09-19 20:20 | NUR ---
RESTING IN BED VISITING WITH RN PLASTIC SURGERY. DENIES DISCOMFORT. TOOK MEDICATIONS WHOLE ONE AT A TIME WITH VANILLA PUDDING. CALL LIGHT WITHIN REACH.
--- NOTE | 2019-09-20 05:42 | NUR ---
RESTED QUIETLY. ASSISTED WITH URINAL DURING THE NIGHT. HOURLY ROUNDING IN PROGRESS.
[2019-09-20 08:08] VITALS: BP 159/56
--- NOTE | 2019-09-20 16:55 | NUR ---
SW met with pt and pt sister to review team conference summary and discuss dc planning after Dr Barakat had discussed plan to reteam. Pt sister concerned for pt to dc home alone and is hopeful that if pt is not ready to dc home alone, pt could possible have more time for rehab at [facility]. SW to send referral to [facility] when needed if approved through insurance. SW to continue to follow to assist with safe dc planning.
--- NOTE | 2019-09-20 16:59 | NUR ---
pt up to chair with mod assist of 1,gaitbelt, walker and queing. pt has lt side neglect and is encouraged to look to lt for items on table and meal plates. pt denies pain.pt calls for assist with urinal and voids yellow urine.no bm today pt to start on miralax and did drink prune juice.pt alert to selfand is talkative.sl intact to rt. ac.
--- NOTE | 2019-09-20 17:30 | NUR ---
DR.DE GURPREET HILL HAS ADRESSED BLOOD PRESSURE MEDICATION.
[2019-09-20 19:46] VITALS: BP 160/79
--- NOTE | 2019-09-20 21:20 | NUR ---
ASSUMED CARE AT 1930. PATIENT RESTING IN BED. ABLE TO TURN SELF. VOIDS PER URINAL WITH NURSING ASSIST. BP 160/79. TAKES PILLS WHOLE WITH PUDDING. NO C/O PAIN. HOURLY ROUNDS CONTINUE. BED ALARM ON. CALL LITE IN REACH.
[2019-09-21 03:55] VITALS: BP 169/69
--- NOTE | 2019-09-21 06:02 | NUR ---
RESTED MOST OF THE NIGHT. REPOSITIONS SELF WITHOUT ASSIST. VOIDS PER URINAL, ABLE BRIDGE UP TO PULL PANTS DOWN AND UP TO USE URINAL. NO C/O PAIN. HOURLY ROUNDS CONTINUE. BED ALARM ON. CALL LITE IN REACH.
[2019-09-21 08:00] VITALS: BP 155/62
[2019-09-21 12:00] VITALS: BP 161/70
[2019-09-21 16:00] VITALS: BP 147/74
--- NOTE | 2019-09-21 17:27 | NUR ---
ASSUMMED CARE OF PT AT 0730, PT ALERT AND ORIENTED, FORGETFUL, TRANSFERS WITH MIN ASSIST, GB STAND AND PIVOTING, HAD LUNCH IN DININGROOM, TAKING FOOD AND FLUIDS WELL, HAD LARGE BM THIS SHIFT, VOIDS PER TOILET/URINAL, PT DENIES PAIN, BP 158/62 AT 0800, 500CC BOLUS GIVEN, AT NOON BP WITHIN PARAMETERS AND AT 1600 500CC BOLUS GIVEN FOR BP OF 147/74, SALINE LOCK TO RIGHT FOREARM PATENT, DR JAIME DISCUSSED ANTIHYPERTENSIVE MEDS AND BOLUS WITH DR LIVINGSTON, NO FURTHER ORDERS REGARDING BOLUS, PARTICIPATED IN ALL THERAPIES, HOURLY ROUNDING COMPLETED, ASSESSMENT COMPLETE, WILL CONTINUE TO MONITOR.
[2019-09-21 20:00] VITALS: BP 182/79
[2019-09-22 01:35] VITALS: BP 160/75
--- NOTE | 2019-09-22 05:13 | NUR ---
ASSUMED CARES AT 1920. ALERT AND ORIENTED BUT FORGETFUL. CVA WITH LEFT SIDE WEAKNESS. DENIED ANY NEED FOR PAIN MEDS. PT REQUESTED PILLS WHOLE IN PUDDING. NEEDS ASSIST WITH USE OF URINAL. DID HAVE URINARY ACCIDENT X 1. SLEPT MOST OF THE NIGHT OTHERWISE. CALL LIGHT IN REACH AND BED ALARM ON.
[2019-09-22 07:39] VITALS: BP 187/84
[2019-09-22 16:00] VITALS: BP 136/59
--- NOTE | 2019-09-22 16:24 | NUR ---
MOOK met with pt and pt sister to discuss plans for possible SNF at [place] at dc; pt insurance is in network and MOOK discussed with dc technical planner to fax referral. Plan to reteam on Wednesday to determine final dc plan.
--- NOTE | 2019-09-22 18:35 | NUR ---
ALERT AND ORIENTED WITH PERIODS OF FORGETFULNESS. UP WITH 1 ASSIST, GAIT BELT AND WALKER. DENIES NEED FOR PAIN MEDICATION. B/P 136/59 THIS EVENING AND IVF BOLUS STARTED WITHOUT DIFFICULTY AND CURRENTLY INFUSING. CALL LIGHT WITHIN REACH. FALL PRECAUTIONS IN PLACE WITH BED AND CHAIR ALARM ON.
[2019-09-22 20:04] VITALS: BP 137/71
[2019-09-22 22:00] VITALS: BP 176/75
[2019-09-23 02:00] VITALS: BP 167/74
--- NOTE | 2019-09-23 05:26 | NUR ---
ASSUMED CARES AT 1920. ALERT AND ORIENTED BUT FORGETFUL AT TIMES. SALINE LOCK CHANGED TO RIGHT HAND. DENIED ANY PAIN. TOOK PILLS WHOLE IN PUDDING. ASSISTED PT WITH URINAL. SLEPT WELL OTHERWISE. CALL LIGHT IN REACH AND BED ALARM ON.
[2019-09-23 08:00] VITALS: BP 158/85; BP 189/72
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
[2019-09-23 20:15] VITALS: BP 165/63
--- NOTE | 2019-09-23 20:30 | NUR ---
AWAKENED FOR REASSESSMENT AND MEDICATIONS PASS. DENIES DISCOMFORT. CALL LIGHT WITHIN REACH. TOOK MEDICATIONS WHOLE IN VANILLA PUDDING.
--- NOTE | 2019-09-24 05:19 | NUR ---
ASSISTED WITH URINAL AT ABOUT 0050. PATIENT STANDS AT SIDE OF THE BED TO VOID. TRANSFERRED FROM SITTING TO STANDING POSITION WITH SBA. HELD ONTO THE BEDRAIL WITH HIS RIGHT HAND. HELD HIS URINAL WITH HIS LEFT HAND AND DROPPED THE URINAL ON THE FLOOR AFTER VOIDING. RESTED QUIELTY THE REMAINDER OF THE NIGHT. TURNS SELF IN BED. HOURLY ROUNDING IN PROGRESS.
[2019-09-24 16:08] VITALS: BP 155/67
[2019-09-24 19:30] VITALS: BP 160/61
--- NOTE | 2019-09-24 19:50 | NUR ---
RESTING QUIETLY IN BED. CALL LIGHT WITHIN REACH. DENIES DISCOMFORT. TOOK MEDICATIONS WHOLE IN VANILLA PUDDING.
--- NOTE | 2019-09-25 05:32 | NUR ---
RESTED ON/OFF. DENIES DISCOMFORT. STANDS AT BEDSIDE WITH SBA TO VOID PER URINAL. HOURLY ROUNDING IN PROGRESS.
[2019-09-25 09:36] VITALS: BP 136/68
[2019-09-25 14:32] VITALS: BP 133/61
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
[2019-09-25 19:00] VITALS: BP 165/78
[2019-09-26 00:59] VITALS: BP 138/66
[2019-09-26 04:58] VITALS: BP 151/57
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
[2019-09-26 07:36] VITALS: BP 159/57
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
--- NOTE | 2019-09-26 14:26 | NUR ---
Nutrition: RN called with concern of pt food preferences. Pt busy with PT in gym at time of visit. RD left menu in pt's room for alternative ordering options. Chopped diet, CVA. Will f/u tomorrow and go over menu with pt, 09/27/19.
[2019-09-26 14:50] VITALS: BP 144/63
[2019-09-26 20:00] VITALS: BP 160/73
[2019-09-27 02:02] VITALS: BP 158/72
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
[2019-09-27 08:08] VITALS: BP 140/51
--- NOTE | 2019-09-27 14:10 | NUR ---
Nutrition: Per RN, pt not drinking much fluid, but appetite is getting better. Pt agreed to Tracy Ensure BID for added fluid intake. Wt: 204#. On Chopped diet. I also provided pt with menu and explanation of alternative choices and ordering. Pt did seem a little confused overall during our visit. Will follow weekly. Mild to low risk.
[2019-09-27 14:30] VITALS: BP 129/50
--- NOTE | 2019-09-27 16:22 | NUR ---
MOOK and Dr Barakat met with pt to review team conference summary and plan for pt to remain on rehab unit at least a few more days with possibility of dc on Wednesday to SNF pending insurance auth; if not approved for SNF, pt would remain on rehab unit and dc pending LTC placement. Insurance review today, SW to follow up with insurance regarding decision and dc planning.
--- NOTE | 2019-09-27 17:18 | NUR ---
ASSUMMED CARE OF PT AT 0730, PT ALERT, FORGETFUL, TRANSFERS WITH MIN ASSIST GB WALKER, NEEDS CUEING TO LOOK LEFT AND RIGHT, FIELD CUT AND DOES NOT SEE TO LEFT, NEED CUEING TO LIFT LEFT LEGG, TAKING FOOD WELL, ABLE TO SCOOP FOOD BETTER WITH PLATE GUARD, NEEDS ENCOURAGEMENT TO DRINK FLUIDS, NO BM THIS SHIFT, HAD LUNCH IN DININGROOM, DENIES PAIN, BP 140 THIS AM, SO NO BOLUS GIVEN, AT 1400 BP LOWER AT 129 SO 500CC BOLUS GIVEN, NO NEURO CHANGES, SL PATENT RIGHT HAND, PARTICIPATED IN ALL THERAPIES, HOURLY ROUNDING COMPLETED, ASSESSMENT COMPLETE, WILL CONTINUE TO MONITOR.
[2019-09-27 19:15] VITALS: BP 164/68
--- NOTE | 2019-09-27 19:50 | NUR ---
SITTING UP IN CHAIR WATCHING TV. DENIES DISCOMFORT. TRANSFERRED FROM CHAIR TO BED WITH SBA, GAITBELT, WALKER, CUEING. BEFORE SITTING DOWN IN BED USED URINAL STANDING UP. URINAL PLACED, HELD AND EMPTIED BY STAFF. TOOK MEDICATIONS WHOLE IN VANILLA PUDDING. CALL LIGHT WITHIN REACH.
--- NOTE | 2019-09-28 05:20 | NUR ---
UP X 3 DURING THE NIGHT TO SIDE OF THE BED TO VOID WITH ASSIST OF ONE. DOESN'T USE THE CALL LIGHT. SITS UP ON SIDE OF THE BED AND SETS THE BED ALARM OFF. HOURLY ROUNDING IN PROGRESS.
[2019-09-28 08:00] VITALS: BP 161/57
--- NOTE | 2019-09-28 17:53 | NUR ---
AM ASSESSMENT AND VITAL SIGNS COMPLETED DOCUMENTED. PT COMPLETED ALL THERAPY SESSIONS AND TOLERATED WELL. IV ACCESS AND SALINE BOLUSES HAVE BEEN DC'D. PT WAS INCONTINENT OF BM X 1 AND HE [address]RIBBLES URINE ON THE WAY TO THE BATHROOM. PT DENIES PAIN. FALL PRECAUTIONS AND HOURLY ROUNDING CONTINUE.
[2019-09-28 20:00] VITALS: BP 153/76
--- NOTE | 2019-09-28 20:20 | NUR ---
SITTING UP IN RECLINER WATCHING TV AND STARTING TO DOSE OFF TO SLEEP. DENIES DISCOMFORT. SITTING ON CHAIR ALARM. CALL LIGHT WITHIN REACH. TOOK MEDICATION WHOLE WITH VANILLA PUDDING. USED URINAL STANDING UP WITH MODERATE ASSISTANCE.
--- NOTE | 2019-09-29 05:21 | NUR ---
RESTED QUIETLY ALL NIGHT. TURNS SELF IN BED. HOURLY ROUNDING IN PROGRESS.
[2019-09-29 08:17] VITALS: BP 185/91
--- NOTE | 2019-09-29 17:10 | NUR ---
FAXED REFERRAL TO [facility] [phone]. WILL CALL TO CONFIRM THEY RECEIVED AND REVIEW FOR POSSIBLE PLACEMENT ON 10/02/19.
--- NOTE | 2019-09-29 18:23 | NUR ---
AM ASSESSMENT AND VITAL SIGNS COMPLETED DOCUMENTED. PT IS FORGETFUL AT TIMES AND GETS UP WITHOUT CALLING FOR ASSISTANCE. PT FEEDS HIMSELF ONCE HIS TRAY IS SET UP. NO C/O PAIN THIS SHIFT. FALL PRECAUTIONS AND HOURLY ROUNDING CONTINUE.
[2019-09-29 20:05] VITALS: BP 149/80
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
--- NOTE | 2019-09-30 05:58 | NUR ---
SLEPT MOST OF THE SHIFT. TURNS SELF. UP TO VOID WITH GAIT BELT, WALKER, AND NURSING HOLDING URINAL. NO C/O PAIN. HOURLY ROUNDS CONTINUE. BED ALARM ON. CALL LITE IN REACH.
[2019-09-30 08:21] VITALS: BP 134/72
[2019-09-30 14:00] VITALS: BP 144/74
--- NOTE | 2019-09-30 16:49 | NUR ---
ASSUMMED CARE OF PT AT 0730, PT ALERT, FORGETFUL, TRANSFERS WITH SBA, GB WALKER NEEDS CUEING TO LOOK TO LEFT HE TENDS TO MOVE WALKER TO RIGHT, NEEDS ENCOURAGEMENT TO EAT, PLATE GUARD HELPFUL AND PT ABLE TO FEED SELF BETTER WHEN USED, BP BELOW PARAMETERS THIS AM, PHYSICIAN AWARE, NO NEW ORDERS, DENIES PAIN, AMBULATED TO DININGROOM FOR LUNCH, NEEDS CUEING TO LIFT LEFT LEG UP WHEN STEPS, VOIDS PER TOILET, PARTICIPATION IN ALL THERAPIES, HOURLY ROUNDING COMPLETE, ASSESSMENT COMPLETE, WILL CONTINUE TO MONITOR.
[2019-09-30 20:00] VITALS: BP 180/86
[2019-09-30 20:30] VITALS: BP 153/77
--- NOTE | 2019-09-30 23:09 | NUR ---
ASSUMED CARE AT 1930. RESTING IN BED. UP TO VOID BY STANDING AT SIDE OF BED, GAIT BELT, WALKER. VOIDS PER URINAL. ALSO HAD BM PER TOILET. UP WITH GAIT BELT, WALKER, MUCH MUCH CUEING DUE TO VISUAL CUTS. DOES OWN CARES. TAKES PILLS WHOLE WITH VANILLA PUDDING. BLOOD PRESSURE CHECKED, WAS 180/86 AFTER REST AFTER SOME EXERTION. RECHECKED JUST PRIOR TO MEDS, WAS 153/77. SEE OCT. NO C/O PAIN. HOURLY ROUNDS CONTINUE. BED ALARM ON. CALL LITE IN REACH.
--- NOTE | 2019-10-01 06:17 | NUR ---
SLEPT MOST OF THE NIGHT. SET OFF BED ALARM ONCE NEEDING TO VOID. VOIDED PER URINAL WHILE STANDING. NO C/O PAIN. HOURLY ROUNDS CONTINUE. BED ALARM ON. CALL LITE IN REACH.
[2019-10-01 08:00] VITALS: BP 136/76
[2019-10-01 14:00] VITALS: BP 144/72
--- NOTE | 2019-10-01 16:43 | NUR ---
ASSUMMED CARE OF PT AT 0730, PT ALERT, FORGETFUL, TRANSFERS WITH SBA, GB WALKER, CUEING TO LOOK TO LEFT, AMBULATED TO BATHROOM TO VOID, BM X 1, PT TAKING FOOD AND FLUIDS WELL, PLATE GUARD DOES HELP PT SCOOP FOOD ONTO UTENSIL, PT DOES NEED CONSTANT CUEING TO LOOK TO LEFT, AMBULATED TO DININGROOM FOR LUNCH, DENIES PAIN, UP IN CHAIR MUCH OF SHIFT, HOURLY ROUNDING COMPLETED, ASSESSMENT COMPLETE, WILL CONTINUE TO MONITOR.
[2019-10-01 19:30] VITALS: BP 131/71
--- NOTE | 2019-10-01 21:46 | NUR ---
ASSUMED CARE AT 1930. PATIENT RESTING IN BED. TURNS SELF IN BED. TAKES PILLS WHOLE WITH VANILLA PUDDING. VOIDS PER URINAL. VISUAL CUTS NOTED, NEEDS CUEING WITH WALKER AND FINDING DRINKING WATER. NO C/O PAIN. HOURLY ROUNDS CONTINUE. BED ALARM ON. CALL LITE IN REACH.
--- NOTE | 2019-10-02 05:46 | NUR ---
SLEPT MOST OF THE NIGHT. TURNS SELF. NO C/O PAIN. VOIDED TWICE THIS SHIFT. HOURLY ROUNDS CONTINUE. BED ALARM ON. CALL LITE IN REACH.
[2019-10-02 08:02] VITALS: BP 145/77
--- NOTE | 2019-10-02 11:38 | NUR ---
VERIFIED WITH MAY/PHYSICAL THERAPY THAT THE PATIENT WILL CONTINUE RECEIVING THERAPY THIS WEEK AND TO PLAN DISCHARGE ON 10/06/19. CONFIRMED WITH MARGIE/INTAKE AT [facility] [phone] THAT THEY RECEIVED REFERRAL AND WILL COME TO ASSESS PATIENT ON WEDNESDAY OR Wednesday AND WILL SUBMIT INSURANCE AUTHORIZATION AT THAT TIME. SPOKE TO THE PATIENT ABOUT POSSIBLY GOING TO [facility] AND HE WAS AGREEABLE. CALLED AND LEFT VOICEMAIL MESSAGE FOR HIS SISTER (JONATHON) TO CALL CASE MANAGEMENT ABOUT DISCHARGE PLANS.
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
[2019-10-02 19:50] VITALS: BP 147/78
--- NOTE | 2019-10-02 19:50 | NUR ---
RESTING QUIETLY IN BED. DENIES DISCOMFORT. CALL LIGHT WITHIN REACH. TOOK MEDICATION WHOLE IN [facility].
--- NOTE | 2019-10-03 05:15 | NUR ---
ASSISTED WITH URINAL DURING THE NIGHT. PATIENT STANDS TO THE SIDE OF THE BED TO VOID. USED CALL LIGHT APPROPRIATMODE. HOURLY ROUNDING IN PROGRESS.
[2019-10-03 08:00] VITALS: BP 167/75
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
--- NOTE | 2019-10-03 19:40 | NUR ---
RESTING QUIETLY IN BED. SAYS THERE ISN'T ANYTHING ON TV HE WANTS TO WATCH. STANDS TO BEDSIDE WITH WALKER TO VOID PER URINAL. TOOK MEDICATIONS WHOLE WITH VANILLA PUDDING. DENIES DISCOMFORT. CALL LIGHT WITHIN REACH.
[2019-10-03 20:00] VITALS: BP 147/83
--- NOTE | 2019-10-04 05:00 | NUR ---
RESTED ON/OFF. ASSISTED WITH THE URINAL. HOURLY ROUNDING IN PROGRESS.
[2019-10-04 08:33] VITALS: BP 131/53
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
--- NOTE | 2019-10-04 18:24 | NUR ---
AM ASSESSMENT AND VITAL SIGNS COMPLETED DOCUMENTED. PT WILL BE TRANSFERRING TO A SNF ON WEDNESDAY. FALL PRECAUTIONS AND HOURLY ROUNDING CONTINUE.
[2019-10-04 19:15] VITALS: BP 114/61
--- NOTE | 2019-10-05 01:45 | NUR ---
ASSUMED CARE @ 190-10/04-WED.AWAKE IN BED.NECK BAND SETTER REMOVED PANTS & LEFT PULL UPS ON.HS DOSE HYTRIN HELD.BP LOW-114/61.OTHER HS MEDS GIVEN WHOLE ONE @ A TIME W/ DEANN GARCIA @ 2029.TURNS SELF @ NIGHT.ON HOURLY ROUNDS.NECK BAND SETTER DOING ODD HOUR ROUNDS.
--- NOTE | 2019-10-05 05:09 | NUR ---
SLEEPING SINCE 2200 & SLEPT GOOD ALL NIGHT.TOOK 90% VANILLA PUDDING W/ HS MEDS.ASSISTED TO STAND UP BY LEAD NET SOFTWARE DEVELOPER TO USE URINAL X1.LEAD NET SOFTWARE DEVELOPER HOLDS,REMOVES & EMPTIES URINAL.WEARS PULL UPS.
[2019-10-05 07:48] VITALS: BP 136/82
--- NOTE | 2019-10-05 10:44 | NUR ---
TALKED WITH MARGIE/KASSY AT [facility] [phone]. INSURANCE NEEDS RECENT PROGRESS AND THERAPY NOTES. FAXED UPDATED CLINICAL NOTES TO MARGIE. PLANNING DISHARGE FOR TOMORROW, 10/06/19.
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
--- NOTE | 2019-10-05 20:00 | NUR ---
RESTING QUIETLY IN BED. DENIES DISCOMFORT. CALL LIGHT AND URINAL WITHIN REACH.
[2019-10-05 20:05] VITALS: BP 150/80
--- NOTE | 2019-10-06 04:55 | NUR ---
RESTED QUIETLY. HOURLY ROUNDING IN PROGRESS.
[2019-10-06 07:00] VITALS: BP 151/64
--- NOTE | 2019-10-06 08:21 | NUR ---
CONFIRMED WITH MARGIE/KASSY AT [facility] THAT THEY RECEIVED INSURANCE AUTHORIZATION AND WILL CALL HER BACK TO ARRANGE TRANSPORTATION FOR PATIENT. WILL NOTIFY DAUGHTER WHEN TIME OF DISCHARGE IS DETERMINED SHE WANTS TO BE AT [facility] WHEN HE ARRIVES. WILL NOTIFY CASE MANAGEMENT AND NURSING UNIT. [phone]
[2019-10-06] MEDS ORDERED: DULCOLAX10 MG RECTAL (11:08)
[2019-10-06] MEDS ORDERED: COLACE100 MG PO (11:10)
[2019-10-06] MEDS ORDERED: MILK OF MA2400 MG/11 PO (11:15)
[2019-10-06] MEDS ORDERED: MIRALAX119 GM PO (11:16)
[2019-10-06] MEDS ORDERED: MYLANTA MAXIMU355 ML PO (11:18)
[2019-10-06] MEDS ORDERED: MIDODRINE HCL 55 M1 PO (11:21)
[2019-10-06] MEDS ORDERED: TYLENOL PO (11:24)
[2019-10-06 12:23] VITALS: BP 151/64
--- NOTE | 2019-10-06 14:08 | NUR ---
CONFIRMED WITH MARGIE/KASSY AT [facility] [phone] THAT A WHEELCHAIR VAN HAS BEEN ARRANGED FOR TRANSPORTATION TO EXPLOSIVE OPERATOR BOMB THE PATIENT BETWEEN 15:30-16:00 TODAY, 10/06/19. I SPOKE TO THE PATIENT TO NOTIFY HIM WHAT TIME HE WOULD BE PICKED UP AND CALLED JONATHON CAO (SISTER) [phone] ALSO TO LET HER KNOW. DISCHARGE SUMMARY AND DPOA FAXED TO [facility]. CHART COPY COMPLETED.
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
== END 2019-10-06 15:30 | DRG 56 ==
LOC: M.REH 17:52
PROVIDERS: Family Medicine; ADMIT Physical Medicine & Rehabilitation
DX: I69.354 Hemiplegia and hemiparesis following cerebral infarction affecting left non-dominant side (principal); I63.9 Cerebral infarction, unspecified; I10 Essential (primary) hypertension; E78.00 Pure hypercholesterolemia, unspecified; E78.5 Hyperlipidemia, unspecified; I25.10 Atherosclerotic heart disease of native coronary artery without angina pectoris; I35.8 Other nonrheumatic aortic valve disorders; R73.03 Prediabetes; H53.47 Heteronymous bilateral field defects; Z87.891 Personal history of nicotine dependence; Z88.5 Allergy status to narcotic agent; Z90.49 Acquired absence of other specified parts of digestive tract; Z95.5 Presence of coronary angioplasty implant and graft; Z71.6 Tobacco abuse counseling

== ENCOUNTER 2021-07-09 12:47 | Emergency (ER) | payer OTHER, MEDICAID ==
[~2021-07-09] VITALS: Ht 175.3 cm; Wt 90.7 kg
[~2021-07-09 12:47] MED LIST changes: +COLACE100 MG PO; +DULCOLAX10 MG RECTAL; +MIDODRINE HCL 55 M1 PO; +MILK OF MA2400 MG/11 PO; +MIRALAX119 GM PO; +MYLANTA MAXIMU355 ML PO; +TYLENOL PO
[2021-07-09] MEDS ORDERED: NITROSTAT0.4 M1 SUBLING (13:25)
[2021-07-09 14:31] LABS: ABSOLUTE BASOPHILS 0.1 thou/uL (0.0-0.2); ABSOLUTE EOSINOPHILS 0.1 thou/uL (0.0-0.7); ABSOLUTE LYMPHOCYTES 1.8 thou/uL (0.8-5.3); ABSOLUTE MONOCYTES 0.6 thou/uL (0.0-1.2); ABSOLUTE NEUTROPHILS 4.5 thou/uL (1.6-8.1); EOSINOPHILS 1.9 %; HEMOGLOBIN 15.3 gm/dL (14.0-18.0); LYMPHOCYTES 24.7 %; MCH 32.6 pg (26.0-34.0); MCV 95.8 fL (80.0-100.0); MONOCYTES 9.1 %; MPV 9.1 fl. (7.2-11.1); NUCLEATED RBCS 0 /100WBC; PLATELET COUNT* 182 thou/uL (150-400); POLYS 63.3 %; WBC 7.1 thou/uL (4.0-11.0)
[2021-07-09 14:40] LABS: CREATININE 1.1 mg/dL (0.6-1.3)
[2021-07-09 14:51] LABS: ALBUMIN 3.8 g/dL (3.4-5.0); TOTAL BILIRUBIN 0.8 mg/dL (<0.1-1.0); TOTAL PROTEIN 7.7 g/dL (6.4-8.2)
[2021-07-09 16:10] LABS: URINE BILIRUBIN NEGATIVE (Negative); URINE BLOOD TRACE (Negative); URINE CLARITY SL CLOUDY; URINE COLOR YELLOW; URINE GLUCOSE-RANDOM NEGATIVE (Negative); URINE KETONES NEGATIVE (Negative); URINE LEUKOCYTES-REFLEX 3+ (Negative); URINE NITRITE-REFLEX NEGATIVE (Negative); URINE PROTEIN NEGATIVE (Negative); URINE UROBILINOGEN 0.2 E.U./dl (0.2-1.0)
[2021-07-09] MEDS ORDERED: CEPHALEXIN500 MG PO (16:19)
[2021-07-09 16:20] LABS: BACTERIA-REFLEX 1-9 Few /HPF (None Seen); CASTS None Seen /LPF (None Seen); CRYSTALS None Seen /LPF (None Seen); SQUAMOUS 0-3 Few /LPF (0-3); URINE RBC 0-2 Rare /HPF (0-2); URINE WBC-REFLEX 6-15 Few /HPF (0-5)
[2021-07-09 16:34] VITALS: BP 125/65
--- NOTE | 2021-07-10 16:34 | EKG ---
[place] [address] ELECTROCARDIOGRAM REPORT Name: OLIVIA CHAHAL Room: [facility]#: [id number] Admission: 07/09/21 Attend Phys: Discharge: 07/09/21 Date of : 43 Date of Service: 07/09/21 1436 Report #: [id number] THIS REPORT FOR: //name// [facility] ED Test Date: 2021-07-09 Test Time: 14:36:01 Pat Name: OLIVIA CHAHAL Department: Room: Gender: Lead Athlete: : 1945 Requested By: Heather Cortes Order Number: [id number] MD: John Conner Measurements Intervals [place] Rate: 50 P: -3 MD: 249 QRS: 22 QRSD: 110 T: 60 QT: 446 QTc: 407 Interpretive Statements Sinus rhythm Prolonged MD interval Abnormal R-wave progression, early transition Minimal ST elevation, early repolarization Compared to ECG 09/07/2019 14:54:41 First degree AV block now present ST (T wave) deviation still present Electronically Signed On 07-10-2021 16:33:56 TRANSIT CLERK by John Conner [email or web address] <ELECTRONICALLY SIGNED> By: John Conner MD, FACC 07/10/21 1633 1436 1436 John Conner MD, FACC /EPI
== END 2021-07-09 16:34 | disposition home or self-care (01) ==
LOC: M.ERS 12:47
PROVIDERS: Physician Assistant
DX: N39.0 Urinary tract infection, site not specified (principal); R53.83 Other fatigue; F98.9 Unspecified behavioral and emotional disorders with onset usually occurring in childhood and adolescence; R45.4 Irritability and anger; I10 Essential (primary) hypertension; E78.00 Pure hypercholesterolemia, unspecified; Z86.73 Personal history of transient ischemic attack (TIA), and cerebral infarction without residual deficits; Z90.89 Acquired absence of other organs; Z90.49 Acquired absence of other specified parts of digestive tract; Z79.899 Other long term (current) drug therapy; Z79.82 Long term (current) use of aspirin; Z88.5 Allergy status to narcotic agent

== ENCOUNTER 2021-10-07 13:32 | Inpatient (IN) | payer OTHER, MEDICAID ==
[~2021-10-07] VITALS: Ht 175.3 cm; Wt 90.7 kg
[~2021-10-07 13:32] MED LIST changes: +CEPHALEXIN500 MG PO; +NITROSTAT0.4 M1 SUBLING
[2021-10-07 13:40] VITALS: BP 168/75
[2021-10-07] MEDS ORDERED: ZETIA10 MG PO (13:45)
[2021-10-07] MEDS ORDERED: HYTRIN 2MG CAPSU2 M1 PO (13:46)
[2021-10-07 13:56] LABS: ABSOLUTE LYMPHOCYTES 1.1 thou/uL (0.8-5.3); ABSOLUTE MONOCYTES 0.7 thou/uL (0.0-1.2); BASOPHILS 0.2 %; HEMATOCRIT 44.3 % (42.0-52.0); LYMPHOCYTES 14.1 %; MCH 32.5 pg (26.0-34.0); MCHC 33.9 g/dL (28.0-37.0); MCV 95.7 fL (80.0-100.0); MONOCYTES 9.5 %; MPV 9.2 fl. (7.2-11.1); NUCLEATED RBCS 0 /100WBC; PLATELET COUNT* 192 thou/uL (150-400); POLYS 76.2 %; RBC 4.63 mil/uL (4.50-6.00); RDW-CV 13.5 % (10.5-14.5); WBC 7.9 thou/uL (4.0-11.0)
[2021-10-07 14:03] LABS: CALCIUM 9.6 mg/dL (8.5-10.1); CREATININE 1.6 mg/dL (0.6-1.3); POTASSIUM 4.9 mmol/L (3.5-5.1)
[2021-10-07 14:06] LABS: APTT 24.2 Seconds (25.0-31.3); PROTIME 10.3 Seconds (9.20-11.50)
[2021-10-07 14:14] LABS: TOTAL BILIRUBIN 1.1 mg/dL (<0.1-1.0); TOTAL PROTEIN 7.8 g/dL (6.4-8.2)
--- NOTE | 2021-10-07 16:40 | EKG ---
[place] [address] ELECTROCARDIOGRAM REPORT Name: OLIVIA CHAHAL Room: [facility]#: [id number] Admission: 10/07/21 Attend Phys: Discharge: Date of : 43 Date of Service: 10/07/21 1342 Report #: [id number] THIS REPORT FOR: //name// [facility] ED Test Date: 2021-10-07 Test Time: 13:42:49 Pat Name: OLIVIA CHAHAL Department: Room: Gender: Spar Finisher: : 1945 Requested By: Isaak Doll Order Number: [id number] MD: John Conner Measurements Intervals [place] Rate: 60 P: 35 AK: 225 QRS: 20 QRSD: 105 T: 71 QT: 405 QTc: 405 Interpretive Statements Sinus rhythm Prolonged AK interval Abnormal R-wave progression, early transition Compared to ECG 07/09/2021 14:36:01 Early repolarization no longer present Electronically Signed On 10-07-2021 16:40:16 INFORMATICA DEVELOPER by John Conner [email or web address] <ELECTRONICALLY SIGNED> By: John Conner MD, FACC 10/07/21 1640 1342 134 John Conner MD, [facility] /EPI
[2021-10-07 17:19] LABS: URINE BILIRUBIN NEGATIVE (Negative); URINE BLOOD TRACE (Negative); URINE CLARITY SL CLOUDY; URINE COLOR YELLOW; URINE GLUCOSE-RANDOM NEGATIVE (Negative); URINE KETONES NEGATIVE (Negative); URINE NITRITE-REFLEX NEGATIVE (Negative); URINE PROTEIN TRACE (Negative); URINE UROBILINOGEN 0.2 E.U./dl (0.2-1.0)
[2021-10-07 17:26] LABS: URINE LEUKOCYTES-REFLEX 2+ (Negative)
[2021-10-07 17:28] LABS: BACTERIA-REFLEX 1-9 Few /HPF (None Seen); CASTS None Seen /LPF (None Seen); SQUAMOUS 4-10 Moderate /LPF (0-3); URINE RBC 0-2 Rare /HPF (0-2); URINE WBC-REFLEX >25 Many /HPF (0-5)
[2021-10-07 17:29] LABS: CALCIUM OXALATE >10 Many /LPF (None Seen)
[2021-10-07 18:00] VITALS: BP 127/55
[2021-10-07 22:05] VITALS: BP 127/55
[2021-10-07 23:12] VITALS: BP 144/62
[2021-10-08 04:00] VITALS: BP 108/57
[2021-10-08 04:15] LABS: HEMATOCRIT 37.8 % (42.0-52.0); MCH 32.6 pg (26.0-34.0); MCHC 34.2 g/dL (28.0-37.0); MCV 95.3 fL (80.0-100.0); RBC 3.97 mil/uL (4.50-6.00); RDW-CV 13.8 % (10.5-14.5)
[2021-10-08 04:18] LABS: CALCIUM 8.4 mg/dL (8.5-10.1); CREATININE 1.3 mg/dL (0.6-1.3); MAGNESIUM 2.1 mg/dL (1.8-2.4); POTASSIUM 4.3 mmol/L (3.5-5.1)
[2021-10-08 04:22] LABS: HEMOGLOBIN 12.9 gm/dL (14.0-18.0)
[2021-10-08 08:05] VITALS: BP 138/69
--- NOTE | 2021-10-08 14:26 | 2DMMODE ---
[place] [id number] 2 D/M-MODE ECHOCARDIOGRAM Name: OLIVIA CHAHAL Room: [address] [place] [facility] [place]#: [id number] Admission: 10/07/21 Attend Phys: Nerissa Goldberg, Discharge: Date of : 43 Date of Service: 10/08/21 1425 Report #: [id number] THIS REPORT FOR: cc: Kelli Chavez,Kelli Key,John Olmstead MD [facility] ~ APPROVED REPORT Study performed: 10/08/2021 11:08:28 EXAM: Comprehensive 2D, Doppler, and color-flow Echocardiogram Patient Location: In-Patient Room #: [facility] Status: routine BSA: 2.07 HR: 72 bpm BP: 138/69 mmHg Rhythm: NSR Other Information Study Quality: Good Indications Congestive Heart Failure Hypertension/HDD 2D Dimensions IVSd: 13.91 (7-11mm) LVOT Diam: 20.55 (18-24mm) LVDd: 34.24 mm PWd: 12.35 (7-11mm) Ascending Ao: 32.97 (22-36mm) LVDs: 20.58 (25-40mm) Aortic Root: 33.84 mm Volumes Left Atrial Volume (Systole) LA ESV Index: 23.90 mL/m2 Aortic Valve AoV Peak Glenroy.: 1.36 m/s AO Peak Gr.: 7.36 mmHg LVOT Max P.49 mmHg AO Mean Gr.: 3.62 mmHg LVOT Mean P.16 mmHg LVOT Max V: 1.27 m/s AO V2 VTI: 25.67 cm LVOT Mean V: 0.81 m/s SAAD (VTI): 3.18 cm2 LVOT V1 VTI: 24.65 [place] [id number] 2 D/M-MODE ECHOCARDIOGRAM Name: OLIVIA CHAHAL Room: [address]#: [id number] Admission: 10/07/21 Attend Phys: Nerissa Goldberg, Discharge: Date of : 43 Date of Service: 10/08/21 1425 Report #: [id number] Mitral Valve E/A Ratio: 0.78 MV Decel. Time: 279.71 ms MV E Max Glenroy.: 0.62 m/s MV PHT: 81.12 ms MVA (PHT): 2.71 cm2 TDI E/Lateral E': 3.65 E/Medial E': 6.89 Medial E' Glenroy.: 0.09 m/s Lateral E' Glenroy.: 0.17 m/s Pulmonary Valve PV Peak Glenroy.: 1.15 m/s PV Peak Gr.: 5.28 mmHg Left Ventricle The left ventricle is normal size. There is normal LV segmental wall motion. Mild concentric left ventricular hypertrophy. Left ventricular systolic function is normal. The left ventricular ejection fraction is within the normal range. LVEF is 60-65%. Grade I - abnormal relaxation pattern. Right Ventricle The right ventricle is normal size. The right ventricular systolic function is normal. Atria The left atrium size is normal. The right atrium size is normal. Aortic Valve The aortic valve is normal in structure. Mild aortic regurgitation. There is no aortic valvular stenosis. Mitral Valve The mitral valve is normal in structure. There is no mitral valve regurgitation noted. No evidence of mitral valve stenosis. Tricuspid Valve The tricuspid valve is normal in structure. There is no tricuspid valve regurgitation noted. Pulmonic Valve The pulmonary valve is normal in structure. There is trace pulmonic [place] [id number] 2 D/M-MODE ECHOCARDIOGRAM Name: OLIVIA CHAHAL Room: [address]#: [id number] Admission: 10/07/21 Attend Phys: Nerissa Goldberg, Discharge: Date of : 43 Date of Service: 10/08/21 1425 Report #: [id number] Great Vessels The aortic root is normal in size. IVC is normal in size and collapses >50% with inspiration. Pericardium There is no pericardial effusion. <Conclusion> Mild concentric left ventricular hypertrophy. LVEF is 60-65%. Mild aortic regurgitation. <ELECTRONICALLY SIGNED> By: John Conner MD, [facility] 10/08/21 142 24 24 John Conner MD, FAC /INF
[2021-10-08 16:00] VITALS: BP 127/37
[2021-10-08 20:00] VITALS: BP 134/61
[2021-10-09 03:40] LABS: HEMATOCRIT 35.8 % (42.0-52.0); HEMOGLOBIN 12.1 gm/dL (14.0-18.0); MCH 32.8 pg (26.0-34.0); MCHC 33.8 g/dL (28.0-37.0); MCV 97.1 fL (80.0-100.0); RBC 3.69 mil/uL (4.50-6.00); RDW-CV 13.6 % (10.5-14.5); WBC 5.7 thou/uL (4.0-11.0)
[2021-10-09 04:04] LABS: CALCIUM 8.1 mg/dL (8.5-10.1); CREATININE 1.1 mg/dL (0.6-1.3); MAGNESIUM 2.2 mg/dL (1.8-2.4); POTASSIUM 4.1 mmol/L (3.5-5.1)
[2021-10-09 07:09] LABS: GLYCOHEMOGLOBIN (HGB A1C) 6.2 % (4.8-5.6)
[2021-10-09 08:10] VITALS: BP 146/61
[2021-10-09 15:55] VITALS: BP 142/67
[2021-10-09 20:30] VITALS: BP 150/57
[2021-10-10 04:22] LABS: HEMATOCRIT 35.9 % (42.0-52.0); HEMOGLOBIN 12.2 gm/dL (14.0-18.0); MCH 32.7 pg (26.0-34.0); MCHC 33.9 g/dL (28.0-37.0); MCV 96.6 fL (80.0-100.0); MPV 8.9 fl. (7.2-11.1); RBC 3.72 mil/uL (4.50-6.00); RDW-CV 13.3 % (10.5-14.5); WBC 5.9 thou/uL (4.0-11.0)
[2021-10-10 04:37] LABS: ALBUMIN 2.8 g/dL (3.4-5.0); CALCIUM 7.8 mg/dL (8.5-10.1); MAGNESIUM 1.9 mg/dL (1.8-2.4); POTASSIUM 3.8 mmol/L (3.5-5.1); TOTAL BILIRUBIN 0.4 mg/dL (<0.1-1.0); TOTAL PROTEIN 5.7 g/dL (6.4-8.2)
[2021-10-10 09:00] VITALS: BP 131/52
[2021-10-10 12:37] VITALS: BP 131/52
[2021-10-10] MEDS ORDERED: CEFUROXIME500 MG PO (13:09)
[2021-10-10 14:51] VITALS: BP 131/52
== END 2021-10-10 15:50 | disposition home health service (06) | DRG 388 ==
LOC: M.ERS 13:32 → M.ORTHSURG 15:46 → M.TBA-ER 15:46 → M.ORTHSURG 22:30
PROVIDERS: Family Medicine; Student in an Organized Health Care Education/Training Program; Surgery; ADMIT Internal Medicine; ATTEND Internal Medicine
DX: K56.600 Partial intestinal obstruction, unspecified as to cause (principal); N17.0 Acute kidney failure with tubular necrosis; N39.0 Urinary tract infection, site not specified; E87.2 Acidosis; I25.10 Atherosclerotic heart disease of native coronary artery without angina pectoris; R73.9 Hyperglycemia, unspecified; I12.9 Hypertensive chronic kidney disease with stage 1 through stage 4 chronic kidney disease, or unspecified chronic kidney disease; N18.2 Chronic kidney disease, stage 2 (mild); B96.89 Other specified bacterial agents as the cause of diseases classified elsewhere; E78.00 Pure hypercholesterolemia, unspecified; E78.5 Hyperlipidemia, unspecified; Z20.822 Contact with and (suspected) exposure to COVID-19; Z86.73 Personal history of transient ischemic attack (TIA), and cerebral infarction without residual deficits; Z90.49 Acquired absence of other specified parts of digestive tract; Z79.899 Other long term (current) drug therapy; Z79.82 Long term (current) use of aspirin; Z88.5 Allergy status to narcotic agent; Z87.891 Personal history of nicotine dependence